=== PATIENT | male | born 1945 | race Caucasian/White ===

== ENCOUNTER 2024-12-28 13:58 | Inpatient (IN) | payer MEDICARE ==
[~2024-12-28] VITALS: Ht 175.2 cm; Wt 79.4 kg
[2024-12-28] MEDS ORDERED: CELEXA10 MG PO (15:24)
[2024-12-28] MEDS ORDERED: COZAAR50 M1 PO (15:25)
[2024-12-28] MEDS ORDERED: NORVASC5 MG PO (15:26)
[2024-12-28] MEDS ORDERED: SIMVASTATIN10 MG PO (15:27)
[2024-12-28] MEDS ORDERED: DEPAKOTE250 MG PO (15:28)
[2024-12-28] MEDS ORDERED: GABARONE100 M1 PO (15:29)
[2024-12-28] MEDS ORDERED: MEMANTINE HCL5 MG PO (15:30)
[2024-12-28] MEDS ORDERED: METOPROLOL25 MG PO (15:31)
[2024-12-28] MEDS ORDERED: ZYPREXA5 M1 PO (15:32)
[2024-12-28] MEDS ORDERED: ATIVAN2 MG/1 ML IM (15:33)
[2024-12-28] MEDS ORDERED: ATIVAN1 MG PO (15:34)
[2024-12-28] MEDS ORDERED: DULCOLAX10 M1 R (15:37)
[2024-12-28] MEDS ORDERED: FLEET ENEMA 13133 ML R (15:38)
[2024-12-28] MEDS ORDERED: MILK OF MA400 MG/53 PO (15:40)
[2024-12-28] MEDS ORDERED: TYLENOL325 M2 PO (15:41)
[2024-12-28] MEDS ORDERED: hydrOXYzine hydrochloride 50 MG/ML VIAL IM PRN (16:00)
[2024-12-28] MEDS ORDERED: Water, Sterile 10 ML VIAL IM PRN (16:00)
[2024-12-28] MEDS ORDERED: LORazepam 1 MG TAB PO PRN (16:00)
[2024-12-28] MEDS ORDERED: Ziprasidone Mesylate 20 MG VIAL IM PRN (16:00)
[2024-12-28] MEDS ORDERED: Magnesium Hydroxide 30 ML UDC PO PRN (16:25)
[2024-12-28] MEDS ORDERED: MG-AL HYDROXIDE/SIMETICONE 30 ML UDC PO PRN (16:25)
[2024-12-28] MEDS ORDERED: ACETAMINOPHEN 325 MG TAB PO PRN (16:25)
[2024-12-28] MEDS ORDERED: Menthol/Zinc Oxide 4 GM THIN T PRN (16:25)
[2024-12-28 18:22] VITALS: BP 132/53
[2024-12-28 20:00] VITALS: BP 107/58
[2024-12-28] MEDS ORDERED: DIVALPROEX (DR) 250 MG TAB PO SCH (21:00)
[2024-12-28] MEDS ORDERED: GABAPENTIN 100 MG CAP PO SCH (21:00)
[2024-12-28] MEDS ORDERED: CITALOPRAM 20 MG TAB PO SCH (21:00)
[2024-12-28] MEDS ORDERED: SIMVASTATIN 20 MG TAB PO SCH (21:00)
[2024-12-28] MEDS ORDERED: Metoprolol Tartrate 25 MG TAB PO SCH (21:00)
[2024-12-28] MEDS ORDERED: Memantine Hydrochloride 10 MG TAB PO SCH (21:00)
[2024-12-29 07:04] LABS: VALPROIC ACID (DEPAKENE) 38.4 ug/ml (50-100)
[2024-12-29 07:43] LABS: VITAMIN D, 25-HYDROXY 42.4 ng/mL (30-100)
[2024-12-29 08:33] VITALS: BP 138/91
[2024-12-29] MEDS ORDERED: Memantine Hydrochloride 5 MG TAB PO SCH (09:00)
[2024-12-29] MEDS ORDERED: amLODIPine besylate 5 MG TAB PO SCH (09:00)
[2024-12-29] MEDS ORDERED: Rivastigmine Tartrate 4.6 MG/24 HR PATCH T SCH (09:00)
[2024-12-29] MEDS ORDERED: Losartan Potassium 50 MG TAB PO SCH (09:00)
[2024-12-29] MEDS ORDERED: CITALOPRAM 20 MG TAB PO SCH (09:45)
[2024-12-29 20:00] VITALS: BP 140/76
[2024-12-29] MEDS ORDERED: Memantine Hydrochloride 10 MG TAB PO SCH (21:00)
[2024-12-29] MEDS ORDERED: DIVALPROEX (DR) 500 MG TAB PO SCH (21:00)
[2024-12-30 07:45] VITALS: BP 100/43
[2024-12-30 20:00] VITALS: BP 98/85
[2024-12-31] MEDS ORDERED: LORazepam 0.5 MG TAB PO SCH (09:00)
[2024-12-31] MEDS ORDERED: DIVALPROEX (DR) 500 MG TAB PO SCH (09:00)
[2024-12-31] MEDS ORDERED: hydrOXYzine hydrochloride 50 MG/ML VIAL IM PRN (18:15)
[2024-12-31 20:00] VITALS: BP 107/88
[2025-01-01 07:36] VITALS: BP 131/67
[2025-01-01] MEDS ORDERED: LORazepam 0.5 MG TAB PO SCH (13:00)
[2025-01-01 20:00] VITALS: BP 101/64
[2025-01-02 07:38] VITALS: BP 153/81
[2025-01-02] MEDS ORDERED: Rivastigmine Tartrate 9.5 MG/24 HR PATCH T SCH (09:00)
[2025-01-02] MEDS ORDERED: Ondansetron Hydrochloride 4 MG TAB PO PRN (11:40)
[2025-01-02] MEDS ORDERED: LORazepam 0.5 MG TAB PO SCH (13:00)
[2025-01-02] MEDS ORDERED: DIVALPROEX SODIUM 125 MG TAB PO SCH (13:00)
[2025-01-02 20:00] VITALS: BP 133/53
[2025-01-03 02:08] LABS: BILIRUBIN Negative (Negative); BLOOD 1+ (Negative); CLARITY Clear (Clear); COLOR Yellow (Yellow); GLUCOSE Negative (Negative); KETONE 1+ (Negative); LEUKO ESTERASE Negative (Negative); NITRITE Negative (Negative); PH 5.5 (4.5-8.0)
[2025-01-03 02:17] LABS: BACTERIA 1+; MUCOUS 1+; RBC 21-30 rbc/hpf (0-2); WBC 0-2 wbc/hpf (0-5)
[2025-01-03 08:00] VITALS: BP 142/71
[2025-01-03] MEDS ORDERED: RIVASTIGMINE 13.3 MG/24 HR TDM T SCH (09:00)
[2025-01-03] MEDS ORDERED: DIVALPROEX (DR) 250 MG TAB PO SCH (09:00)
[2025-01-03 20:00] VITALS: BP 93/62
[2025-01-04 06:36] LABS: ALKALINE PHOSPHATASE 98 U/L (46-116); BASO # 0.1 10*3/uL (0.0-0.1); BASO % 0.8 % (0.0-1.0); BUN 24 mg/dl (9-23); CHLORIDE 104 mmol/L (98-107); EOS # 0.3 10*3/uL (0.0-0.4); EOS % 4.1 % (1.0-4.0); HEMATOCRIT 48.3 % (42.0-52.0); MEAN CELL VOLUME 92.4 fl (80.0-94.0); MEAN CORPUSCULAR HGB CONC 33.5 g/dl (33.0-37.0); MEAN PLATELET VOLUME 10.4 fl (9.6-12.3); MONO # 0.7 10*3/uL (0.1-1.0); MONO % 8.4 % (3.0-9.0); NEUT # 5.2 10*3/uL (2.3-7.9); PLATELET COUNT AUTOMATED 208 10*3/uL (130-400); RED BLOOD COUNT 5.23 10*6/uL (4.50-5.90); RED CELL DISTRI WIDTH 12.6 % (0-14.5); SGPT/ALT 40 U/L (5-49); TOTAL PROTEIN 7.5 gm/dL (6.0-8.0); WHITE BLOOD COUNT 7.9 10*3/uL (4.8-10.8)
[2025-01-04 08:00] VITALS: BP 123/58
[2025-01-04 20:00] VITALS: BP 136/70
[2025-01-04] MEDS ORDERED: LORazepam 0.5 MG TAB PO SCH (21:00)
[2025-01-05 07:54] VITALS: BP 133/71
[2025-01-05 20:00] VITALS: BP 140/75
[2025-01-06 08:00] VITALS: BP 135/77
[2025-01-06 20:00] VITALS: BP 133/64
[2025-01-06] MEDS ORDERED: LORazepam 1 MG TAB PO SCH (21:00)
[2025-01-07 08:00] VITALS: BP 109/63
[2025-01-07 20:00] VITALS: BP 146/55
[2025-01-07] MEDS ORDERED: clonAZEPAM 1 MG TAB PO SCH (21:00)
[2025-01-08 08:25] VITALS: BP 139/80
[2025-01-08 12:40] LABS: BASO # 0.1 10*3/uL (0.0-0.1); BASO % 0.6 % (0.0-1.0); EOS # 0.1 10*3/uL (0.0-0.4); EOS % 0.7 % (1.0-4.0); HEMATOCRIT 44.8 % (42.0-52.0); MEAN CELL VOLUME 92.8 fl (80.0-94.0); MEAN CORPUSCULAR HGB 30.8 pg (27.0-31.0); MEAN CORPUSCULAR HGB CONC 33.3 g/dl (33.0-37.0); MEAN PLATELET VOLUME 9.7 fl (9.6-12.3); MONO # 1.2 10*3/uL (0.1-1.0); NEUT # 9.3 10*3/uL (2.3-7.9); NEUT % 77.3 % (47.0-73.0); PLATELET COUNT AUTOMATED 206 10*3/uL (130-400); RED BLOOD COUNT 4.83 10*6/uL (4.50-5.90); RED CELL DISTRI WIDTH 12.6 % (0-14.5); WHITE BLOOD COUNT 12.1 10*3/uL (4.8-10.8)
[2025-01-08 13:20] LABS: ALKALINE PHOSPHATASE 101 U/L (46-116); BUN 16 mg/dl (9-23); CHLORIDE 105 mmol/L (98-107); POTASSIUM 3.8 mmol/L (3.4-5.1); SGPT/ALT 41 U/L (5-49); TOTAL PROTEIN 7.2 gm/dL (6.0-8.0)
[2025-01-08 20:00] VITALS: BP 145/89
[2025-01-09 08:00] VITALS: BP 139/70
[2025-01-09 20:00] VITALS: BP 100/49
[2025-01-10 08:55] VITALS: BP 103/65
[2025-01-10 09:44] LABS: BASO # 0.1 10*3/uL (0.0-0.1); BASO % 0.6 % (0.0-1.0); EOS # 0.2 10*3/uL (0.0-0.4); EOS % 1.7 % (1.0-4.0); HEMATOCRIT 43.7 % (42.0-52.0); MEAN CELL VOLUME 93.4 fl (80.0-94.0); MEAN CORPUSCULAR HGB 30.6 pg (27.0-31.0); MEAN CORPUSCULAR HGB CONC 32.7 g/dl (33.0-37.0); MEAN PLATELET VOLUME 9.7 fl (9.6-12.3); MONO # 0.7 10*3/uL (0.1-1.0); MONO % 6.8 % (3.0-9.0); NEUT # 7.5 10*3/uL (2.3-7.9); NEUT % 78.1 % (47.0-73.0); PLATELET COUNT AUTOMATED 223 10*3/uL (130-400); RED BLOOD COUNT 4.68 10*6/uL (4.50-5.90); RED CELL DISTRI WIDTH 12.8 % (0-14.5); WHITE BLOOD COUNT 9.7 10*3/uL (4.8-10.8)
[2025-01-10 10:45] LABS: BILIRUBIN Negative (Negative); BLOOD Trace-Lysed (Negative); CLARITY Clear (Clear); COLOR Dark Yellow (Yellow); GLUCOSE Negative (Negative); KETONE 1+ (Negative); LEUKO ESTERASE 2+ (Negative); NITRITE Negative (Negative); PH 5.5 (4.5-8.0)
[2025-01-10 11:30] LABS: MUCOUS 1+; WBC TNTC wbc/hpf (0-5)
[2025-01-10] MEDS ORDERED: Acetaminophen/Hydrocodone 5 MG/325 MG TABLET PO ONE (14:20)
[2025-01-10] MEDS ORDERED: CLONAZEPAM1 MG PO (16:13)
[2025-01-10] MEDS ORDERED: VISTARIL IM (16:13)
[2025-01-10] MEDS ORDERED: CITALOPRAM20 MG PO (16:13)
[2025-01-10] MEDS ORDERED: MEMANTINE HCL10 MG PO (16:13)
[2025-01-10] MEDS ORDERED: DIVALPROEX SOD250 MG PO (16:13)
[2025-01-10] MEDS ORDERED: REMEDY CALAZIME4 GM T (16:13)
[2025-01-10] MEDS ORDERED: Ondansetron4 MG PO (16:13)
[2025-01-10] MEDS ORDERED: ZIPRASIDON20 MG/1 ML IM (16:13)
[2025-01-10] MEDS ORDERED: MORPHINE 22 MG/1 ML IV (16:13)
[2025-01-10] MEDS ORDERED: RIVASTIGMINE1 EAC2 T (16:13)
== END 2025-01-10 16:47 | disposition short-term general hospital (02) | DRG 883 ==
LOC: 3N
PROVIDERS: Counselor Professional; ADMIT Psychiatry & Neurology Psychiatry; ATTEND Psychiatry & Neurology Psychiatry
PROC: GZHZZZZ Group Psychotherapy (ICD-10-PCS; principal; 2024-12-28)
PROC: GZ51ZZZ Individual Psychotherapy, Behavioral (ICD-10-PCS; 2024-12-28)
PROC: 0HBRXZZ Excision of Toe Nail, External Approach (ICD-10-PCS; 2025-01-02)
PROC: 0HBRXZZ Excision of Toe Nail, External Approach (ICD-10-PCS; 2025-01-02)
PROC: 0HBRXZZ Excision of Toe Nail, External Approach (ICD-10-PCS; 2025-01-02)
PROC: 0HBRXZZ Excision of Toe Nail, External Approach (ICD-10-PCS; 2025-01-02)
PROC: 0HBRXZZ Excision of Toe Nail, External Approach (ICD-10-PCS; 2025-01-02)
PROC: 0HBRXZZ Excision of Toe Nail, External Approach (ICD-10-PCS; 2025-01-02)
PROC: 0HBRXZZ Excision of Toe Nail, External Approach (ICD-10-PCS; 2025-01-02)
PROC: 0HBRXZZ Excision of Toe Nail, External Approach (ICD-10-PCS; 2025-01-02)
PROC: 0HBRXZZ Excision of Toe Nail, External Approach (ICD-10-PCS; 2025-01-02)
PROC: 0HBRXZZ Excision of Toe Nail, External Approach (ICD-10-PCS; 2025-01-02)
DX: F63.81 Intermittent explosive disorder (principal); F02.818 Dementia in other diseases classified elsewhere, unspecified severity, with other behavioral disturbance; E80.6 Other disorders of bilirubin metabolism; G30.9 Alzheimer's disease, unspecified; E55.9 Vitamin D deficiency, unspecified; F63.9 Impulse disorder, unspecified; Z66 Do not resuscitate; F41.9 Anxiety disorder, unspecified; I10 Essential (primary) hypertension; E78.5 Hyperlipidemia, unspecified; R79.9 Abnormal finding of blood chemistry, unspecified; B35.1 Tinea unguium; L60.3 Nail dystrophy; I73.9 Peripheral vascular disease, unspecified; Z82.49 Family history of ischemic heart disease and other diseases of the circulatory system; Z51.5 Encounter for palliative care; Z79.899 Other long term (current) drug therapy

== ENCOUNTER 2024-12-28 15:11 | Emergency (ER) | payer MEDICARE ==
[~2024-12-28] VITALS: Ht 182.8 cm; Wt 72.6 kg
[2024-12-28] MEDS ORDERED: CELEXA10 MG PO (15:24)
[2024-12-28] MEDS ORDERED: COZAAR50 M1 PO (15:25)
[2024-12-28] MEDS ORDERED: NORVASC5 MG PO (15:26)
[2024-12-28] MEDS ORDERED: SIMVASTATIN10 MG PO (15:27)
[2024-12-28] MEDS ORDERED: DEPAKOTE250 MG PO (15:28)
[2024-12-28] MEDS ORDERED: GABARONE100 M1 PO (15:29)
[2024-12-28] MEDS ORDERED: MEMANTINE HCL5 MG PO (15:30)
[2024-12-28] MEDS ORDERED: METOPROLOL25 MG PO (15:31)
[2024-12-28] MEDS ORDERED: ZYPREXA5 M1 PO (15:32)
[2024-12-28] MEDS ORDERED: ATIVAN2 MG/1 ML IM (15:33)
[2024-12-28] MEDS ORDERED: ATIVAN1 MG PO (15:34)
[2024-12-28] MEDS ORDERED: DULCOLAX10 M1 R (15:37)
[2024-12-28] MEDS ORDERED: FLEET ENEMA 13133 ML R (15:38)
[2024-12-28] MEDS ORDERED: MILK OF MA400 MG/53 PO (15:40)
[2024-12-28] MEDS ORDERED: TYLENOL325 M2 PO (15:41)
[2024-12-28 15:50] LABS: BASO % 0.5 % (0.0-1.0); EOS # 0.1 10*3/uL (0.0-0.4); EOS % 1.2 % (1.0-4.0); HEMATOCRIT 44.2 % (42.0-52.0); MEAN CELL VOLUME 93.4 fl (80.0-94.0); MEAN CORPUSCULAR HGB 30.9 pg (27.0-31.0); MEAN PLATELET VOLUME 9.5 fl (9.6-12.3); MONO # 0.3 10*3/uL (0.1-1.0); NEUT % 85.4 % (47.0-73.0); PLATELET COUNT AUTOMATED 163 10*3/uL (130-400); RED BLOOD COUNT 4.73 10*6/uL (4.50-5.90); RED CELL DISTRI WIDTH 12.9 % (0-14.5); WHITE BLOOD COUNT 8.2 10*3/uL (4.8-10.8)
[2024-12-28 16:28] LABS: ALKALINE PHOSPHATASE 90 U/L (46-116); BUN 25 mg/dl (9-23); CHLORIDE 105 mmol/L (98-107); CPK 141 U/L (34-171); POTASSIUM 4.4 mmol/L (3.4-5.1); SGPT/ALT 21 U/L (5-49); TOTAL PROTEIN 7.2 gm/dL (6.0-8.0)
[2024-12-28 16:29] LABS: ETHYL ALCOHOL < 3.0 mg/dl (<3)
== END 2024-12-28 17:28 ==
LOC: ED 15:11
PROVIDERS: Nurse Practitioner Family
DX: F63.81 Intermittent explosive disorder (principal); Z79.899 Other long term (current) drug therapy